=== PATIENT | male | born 1980 | race Two or more races ===

== ENCOUNTER 2016-08-12 18:07 | Emergency (ER) | payer MEDICAID ==
--- NOTE | 2016-08-12 18:43 | ED Physician Chart ---
Chief Complaint/HPI - Patient Information Date Seen:: 08/12/16 Time Seen:: 18:08 Chief Complaint:: right foot pain History of Present Illness:: THIS IS A 35 YO MALE WHO STATES THAT HE STEPPED IN A HOLE WHILE LIFTING AN OBJECT THIS AFTERNOON. HE STATES THAT IT WAS NOT AT WORK. HE STATES THAT HE HAS NOT HAD A FOOT INJURY IN THE PAST. HE DENIES ALL OTHER INJURIES. HE IS NOW CONCERNED ABOUT THE PAIN. HE STATES THAT HE TOOK SEVERAL DOSES OF MOTRIN PRIOR TO COMING INTO THIS ER THIS PM. Allergies:: Allergies Allergy/AdvReac Type Severity Reaction Status Date / Time No Known Allergies Allergy Verified 08/12/16 18:08 Vitals:: Vital Signs - 8 hr 08/12/16 18:07 Temp 97.0 F HR 98 RR 16 BP 170/93 O2 Sat % 99 Historian:: Patient Review:: Nurse's Note Reviewed Review of Systems - Review of Systems General/Constitutional: No fever, No chills, No weight loss, No weakness, No diaphoresis, No edema, No loss of appetite Skin: No skin lesions, No rash, No bruising Head: No headache, No light-headedness Eyes: No loss of vision, No pain, No diplopia ENT: No earache, No nasal drainage, No sore throat, No tinnitus Neck: No neck pain, No swelling, No thyromegaly, No stiffness, No mass noted Cardio Vascular: No chest pain, No palpitations, No PND, No orthopnea, No edema Pulmonary: No SOB, No cough, No sputum, No wheezing GI: No nausea, No vomiting, No diarrhea, No pain, No melena, No hematochezia, No constipation, No hematemesis G/U: No dysuria, No frequency, No hematuria Musculoskeletal: Bone or joint pain (RIGHT FOOT PAIN), No back pain, No muscle pain Endocrine: No polyuria, No polydipsia Psychiatric: No prior psych history, No depression, No anxiety, No suicidal ideation Hematopoietic: No bruising, No lymphadenopathy Allergic/Immuno: No urticaria, No angioedema Neurological: No syncope, No focal symptoms, No weakness, No paresthesia, No headache, No seizure, No dizziness, No confusion, No vertigo Past Medical History - Past Medical History Obtainable: Yes Past Medical History: No significant medical hx Family History: None Social History: Non Smoker, No Alcohol, No Drug Use Surgical History: None Psychiatricy History: None Medication: Reviewed Family Medical History - Family Member Mother Ethnicity: Hx Family Cancer: No Hx Family Coronary Artery Disease: No Hx Family Congestive Heart Failure: No Hx Family Hypertension: No Hx Family Stroke: No Hx Family Diabetes: No Hx Family Seizures: No Hx Family Dementia: No Hx Family AIDS: No Hx Family HIV: No Hx Family COPD: No Hx Family Hepatitis: No Hx Family Psychiatric Problems: No Hx Family Tuberculosis: No Other Medical History: denies family medical history Physical Exam - Physical Examination General/Constitutional: Awake, Well-developed, well-nourished, Alert, No distress, GCS 15, Non-toxic appearing, Ambulatory Head: Atraumatic Eyes: Lids, conjuctiva normal, PERRL, EOMI Skin: Nl inspection, No rash, No skin lesions, No ecchymosis, Well hydrated, No lymphadenopathy ENMT: External ears, nose nl, Nasal exam nl, Lips, teeth, gums nl Neck: Nontender, Full ROM w/o pain, No JVD, No nuchal rigidity, No bruit, No mass, No stridor Respiratory: Nl effort/Exclusion, Clear to Auscultation, No Wheeze/Rhonchi/Rales Cardio Vascular: RRR, No murmur, gallop, rubs, NL S1 S2 GI: No tenderness/rebounding/guarding, No organomegaly, No hernia, Normal BS's, Nondistended, No mass/bruits, No McBurney tenderness : No CVA tenderness Extremities: No tenderness or effusion, Full ROM, normal strength in all extremities, No edema, Normal digits & nails Other Extremities comments:: THE RIGHT FOOT IS NOT RED,SWOLLEN, TENDER AND THERE ARE NO OPEN WOUNDS NOTED. THE ROM OF THE FOOT IS NORMAL, THE SENSORY AND CIRCULATION ARE NORMAL. Neuro/Psych: Alert/oriented, DTR's symmetric, Normal sensory exam, Normal motor strength, Judgement/insight normal, Mood normal, Normal gait, No focal deficits Misc: normal gait, Normal back, No paraspinal tenderness Labs/Radiology/EKG Results - Radiology Results Results: RIGHT FOOT X-RAYS = NEG FOR FRACTURE AND FB OLD HEALING FRACTURE NOTED. ED Septic Shock - . Is Septic Shock (SBP<90, OR Lactate>4 mmol\L) present?: No - <6hrs of presentation: Vital Signs: Vital Signs - 8 hr 08/12/16 18:07 Temp 97.0 F HR 98 RR 16 BP 170/93 O2 Sat % 99 Reassessment (Disposition) - Reassessment Reassessment Condition:: Improved - Diagnosis Diagnosis:: RIGHT FOOT STRAIN - Aftercare/Follow up Instructions Aftercare/Follow-Up Instructions:: Counseled pt regarding lab results/diagnosis & need follow up, Refer to Discharge Instructions, Counseled pt & family regarding lab results/diagnosis & need follow up Medication Prescribed:: FANATREX - Patient Disposition Discharge/Transfer:: Home Condition at Disposition:: Improved ED Discharge Plan - Patient Disposition Admit/Discharge/Transfer: PT DISCHARGED HOME Condition at Disposition: Improved Instructions: Foot Sprain Accepting Physician: , Primary [Other] Forms: Work Release Form
--- NOTE | 2016-08-13 09:07 | Diagnostic Imaging Report ---
Right foot (3 views) HISTORY: Pain, trauma The exam demonstrates a healing fracture involving the midshaft of the fourth metatarsal. No acute bony abnormalities are seen. No fractures. Joint spaces appear normal. Minimal spur formation seen off the plantar aspect of the posterior calcaneus. IMPRESSION: 1. Healing fracture involving the midshaft of the fourth metatarsal 2. Minimal calcaneal spur formation In the presence of recent trauma and persistent symptoms, a repeat radiograph in 5-7 days may be helpful for detection of a subtle or occult fracture.
== END 2016-08-12 19:09 | disposition home or self-care (01) ==
LOC: ER 18:07
DX: S96.911A Strain of unspecified muscle and tendon at ankle and foot level, right foot, initial encounter (principal); X58.XXXA Exposure to other specified factors, initial encounter; Y93.89 Activity, other specified; Y92.89 Other specified places as the place of occurrence of the external cause; Y99.8 Other external cause status
CPT/HCPCS: 99284; 96372; 73630; J1885; Z7502